=== PATIENT | female | born 1945 | race Caucasian/White ===

== ENCOUNTER → 2016-06-27 | Outpatient (CLI) | payer MEDICARE, OTHER ==
[~2016-06-27] MED LIST: ASPIRIN EC81 MG PO; CATAPRES0.2 MG PO; DIOVAN HCT 3201 EAC1 PO; NEOSPORIN15 GM TOP; PRILOSEC20 MG PO; THERA-VITE W/ B1 TAB PO; THERAGRAN-M1 TAB PO; TYLENOL WITH C1 EACH PO; WELCHOL 625MG625 MG PO
== END | disposition disaster alternative care site (69) ==
LOC: LENT 16:22
DX: L85.8 Other specified epidermal thickening (principal)